=== PATIENT | male | born 1960 | race Asian ===

== ENCOUNTER 2024-04-28 00:06 | Emergency (ER) | payer SELFPAY ==
[~2024-04-28] VITALS: Ht 167.6 cm; Wt 62.6 kg
[2024-04-28 00:16] VITALS: BP_SYST 159; PULSE 100; RESP 20; TEMP 98; O2SAT 98
[2024-04-28 00:43] VITALS: BP_SYST 159; PULSE 100; RESP 20; TEMP 98; O2SAT 98
== END 2024-04-28 00:43 | disposition home or self-care (01) ==
LOC: SED 00:06
DX: E11.9 Type 2 diabetes mellitus without complications (principal); E78.5 Hyperlipidemia, unspecified; I10 Essential (primary) hypertension; Z88.2 Allergy status to sulfonamides; Z79.84 Long term (current) use of oral hypoglycemic drugs
CPT/HCPCS: 82948; 99283